=== PATIENT | female | born 1960 | race American Indian/Alaskan Native ===

== ENCOUNTER 2021-08-14 15:15 | Emergency (ER) | payer BC ==
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
[2021-08-14] MEDS ORDERED: MORPHINE 4 MG/1 ML INJ IV ONE (18:00)
[2021-08-14] MEDS ORDERED: IBUPROFEN 600 MG TAB PO ONE (18:10)
--- NOTE | 2021-08-14 18:58 | Cat Scan Report ---
CT head/brain wo con INDICATION / CLINICAL INFORMATION: 60 years Female; Consult. TECHNIQUE: Routine CT head without contrast. All CT scans at this location are performed using CT dos e reduction for ALARA by means of automated exposure control. COMPARISON: None. FINDINGS: BRAIN / INTRACRANIAL CONTENTS: The motion degrades image quality. However, there is extensive right p eriorbital soft tissue hematoma. There is no clear CT ends of acute intracranial hemorrhage or signif icant mass effect. The brain parenchyma appears to demonstrate appropriate attenuation for age. The ventricular system i s within normal limits in size and configuration. ORBITS: There are also appear to be post septal inflammatory changes on the right with mild exophthal mos. There is prominent periorbital soft tissue hematoma on the right as noted above. SINUSES / MASTOIDS: The visualized paranasal sinuses are pneumatized. The maxillofacial CT will be di ctated separately. CRANIOCERVICAL JUNCTION: No significant abnormality. ADDITIONAL FINDINGS: None. IMPRESSION: 1. There is extensive right periorbital soft tissue hematoma as described. There is no clear CT evide nce of acute intracranial hemorrhage. 2. The maxillofacial CT will be dictated separately. Signer Name: Manfred Summers MD Signed: 08/14/2021 6:53 PM Workstation Name: [id number]
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
[2021-08-14 21:14] VITALS: BP 140/77
== END 2021-08-14 21:05 | disposition home or self-care (01) ==
LOC: ED 15:15
DX: H05.231 Hemorrhage of right orbit (principal); R51.9 Headache, unspecified; Y04.8XXA Assault by other bodily force, initial encounter; Y93.89 Activity, other specified; Y92.89 Other specified places as the place of occurrence of the external cause; Y99.8 Other external cause status
CPT/HCPCS: 70450; 70486; 99284; J2270